=== PATIENT | female | born 2000 | race Caucasian/White ===

== ENCOUNTER 2022-01-22 15:37 | Inpatient (IN) | payer OTHER ==
[~2022-01-22] VITALS: Ht 157.5 cm; Wt 63.7 kg
[2022-01-22] MEDS ORDERED: ACET-2708 PO (15:56)
[2022-01-22] MEDS ORDERED: SODIUM CHLORIDE 0.9% 1,000 ML IV ONE (17:00)
[2022-01-22 17:22] LABS: HEMATOCRIT. 36.3 % (36.0-48.0); HEMOGLOBIN. 12.3 g/dL (12.0-16.0); MEAN CORPUSCULAR HEMOGLOBIN 31.5 pg (28.0-32.0); MEAN CORPUSCULAR VOLUME 93.2 fL (81.0-99.0); MEAN PLATELET VOLUME 8.7 fl (7.4-10.4); PLATELET 526 x1000/uL (130-400); RED BLOOD CELL COUNT 3.89 mill/uL (4.2-5.4); RED CELL DISTRIBUTION WIDTH 15.2 % (11.6-14.6)
[2022-01-22 17:34] LABS: HCG SCREEN NEGATIVE
[2022-01-22 18:05] LABS: CHLORIDE 98 mEq/L (98-107)
[2022-01-22 18:30] LABS: INR 1.1; PROTHROMBIN TIME 12.1 sec (9.6-11.0)
[2022-01-22] MEDS ORDERED: PIPERACILLIN/TAZOBACTAM 3.375GM/50ML PREMIX IV NR (18:30)
[2022-01-22 19:20] LABS: CLARITY URINE CLOUDY (CLEAR); COLOR URINE DARK YELLOW (YELLOW); KETONES URINE 3+ (NEGATIVE); LEUKOCYTE ESTERASE URINE TRACE (NEGATIVE); NITRITE URINE NEGATIVE (NEGATIVE); OCCULT BLOOD URINE 3+ (NEGATIVE); PH URINE 6.5 (4.5-8.0); PROTEIN URINE 1+ (NEGATIVE); SPECIFIC GRAVITY URINE 1.022 (1.005-1.030)
[2022-01-22 19:59] LABS: PLATELET ESTIMATE MARKEDLY INCREASED
[2022-01-22] MEDS ORDERED: MORPHINE SULFATE 4 MG/ML CPJ (NOT FOR IM USE) IV ONE (21:00)
[2022-01-22] MEDS ORDERED: DIPHENHYDRAMINE 50MG/ML VIAL IV PRN (22:30)
[2022-01-23] VITALS (25 sets, daily range): BP systolic 112–145; BP diastolic 59–91
[2022-01-23] MEDS: HYDROMORPHONE HCL/PF 2MG/ML CPJ IV PRN ×4 (02:25→20:55)
[2022-01-23] MEDS ORDERED: ONDANSETRON HCL 4MG/2ML INJ IV PRN (02:45)
[2022-01-23] MEDS ORDERED: ALPR0.25 PO (02:55)
[2022-01-23] MEDS ORDERED: ACETAMINOPHEN 325MG TABLET PO PRN ×2 (03:00→13:30)
[2022-01-23] MEDS: DEXT 5%/0.9% NACL 1,000 ML IV SCH ×3 (03:26→19:36)
[2022-01-23] MEDS: MEROPENEM 500 MG in SODIUM CHLORIDE 0.9% 50 ML IV SCH ×3 (03:31→19:36)
[2022-01-23] MEDS ORDERED: VANCOMYCIN 1250MG in DEXTROSE 5% WATER 250ML IV SCH (04:00)
[2022-01-23] MEDS ORDERED: PANTOPRAZOLE SODIUM 40 MG/VIAL IV SCH (09:00)
[2022-01-23] MEDS ORDERED: LIDOCAINE HCL/PF 1% 10 MG/ML 5ML VIAL ONE (09:38)
[2022-01-23] MEDS ORDERED: FENTANYL CITRATE/PF 50MCG/ML 2ML VIAL IV NR (10:55)
[2022-01-23] MEDS ORDERED: FENTANYL CITRATE/PF 50MCG/ML 2ML VIAL ONE ×2 (10:55→11:58)
[2022-01-23] MEDS ORDERED: DIATR MEGLU/DIATRIZOATE SOLN 30ML ONE (10:58)
[2022-01-23] MEDS ORDERED: VANCOMYCIN 1G PREMIX 200 ML IV SCH (12:00)
[2022-01-23] MEDS ORDERED: VANCOMYCIN 750 MG in DEXT 5% WATER 250 ML IV SCH (14:00)
== END 2022-01-23 21:30 | disposition short-term general hospital (02) | DRG 759 ==
LOC: ER 15:37 → ENRESERV 22:50 → 6WST 01-23 02:25
PROVIDERS: ADMIT Internal Medicine; ATTEND Internal Medicine
PROC: 0W9J3ZX Drainage of Pelvic Cavity, Percutaneous Approach, Diagnostic (ICD-10-PCS; principal; 2022-01-23)
DX: N73.9 Female pelvic inflammatory disease, unspecified (principal); K59.00 Constipation, unspecified; Z20.822 Contact with and (suspected) exposure to COVID-19; K80.20 Calculus of gallbladder without cholecystitis without obstruction; Z90.49 Acquired absence of other specified parts of digestive tract; Z79.1 Long term (current) use of non-steroidal anti-inflammatories (NSAID); Z79.899 Other long term (current) drug therapy
CPT/HCPCS: 36415; 74176; 77012; 78227; 80053; 81003; 83605; 84703; 85025; 86850; 86900; 87070; 87075; 87426; 99152; 99153; 99291; A9537; C1729; C1769; C9113; J1170; J2185; J2270; J2543; J3010; J3370; J3490; J7030; J7042; J7060; L8514; Q9963; G0500